=== PATIENT | female | born 1980 | race Caucasian/White ===

== ENCOUNTER 2018-03-26 12:39 | Emergency (ER) | payer OTHER ==
[~2018-03-26] VITALS: Ht 154.9 cm; Wt 56.7 kg
[2018-03-26 12:59] VITALS: Ht 154.9 cm; Wt 56.7 kg
[2018-03-26 15:38] VITALS: BP 130/79
== END 2018-03-26 15:38 | disposition home or self-care (01) ==
LOC: ED 12:39
DX: S86.911A Strain of unspecified muscle(s) and tendon(s) at lower leg level, right leg, initial encounter (principal); X58.XXXA Exposure to other specified factors, initial encounter; Y93.89 Activity, other specified; Y92.89 Other specified places as the place of occurrence of the external cause; Y99.8 Other external cause status
CPT/HCPCS: J1885; Q0092